=== PATIENT | female | born 1945 | race Caucasian/White ===

== ENCOUNTER 2017-05-15 08:43 | Observation (INO) | payer MEDICARE ==
[2017-05-15] VITALS (9 sets, daily range): BP systolic 111–159; BP diastolic 59–87; PULSE 54–81; RESP 15–18; TEMP 96.4–97.7; O2SAT 95–99
[~2017-05-15] VITALS: Ht 160 cm; Wt 53.9 kg
[2017-05-15] MEDS ORDERED: NEBI20 PO (08:57)
[2017-05-15] MEDS ORDERED: LOSA100T PO (08:57)
[2017-05-15] MEDS ORDERED: PLAV75TA29 PO (08:57)
[2017-05-15] MEDS ORDERED: NIFE90TA2 (08:57)
[2017-05-15] MEDS ORDERED: POTA8CAP PO (08:57)
--- NOTE | 2017-05-15 08:59 | PD ---
HPI Chief Complaint: chest pain Time Seen by Provider: 08:53 Travel History International Travel<30 days: Yes Contact w/Intl Traveler<30days: Yes Traveled to known affect area: Yes History of Present Illness HPI This 71-year-old female is complaining of chest pain. She says that when she was driving this morning around 10-15 minutes ago she had an onset of substernal pain. The pain radiated to her back and has been persistent. He was little bit sweaty at that time. He did not vomit. She was not nauseated. She has had occasional pain like this in the past. She said she had similar pain which led to a cholecystectomy. She does have a history of coronary artery disease. She had bypass surgery 16 years ago. She says a single vessel was bypassed in the front of the heart. Since then she has had occasional pain. She had a 30 7 months after the bypass which apparently was okay she is on Plavix. She does not take aspirin. She says she generally has a good exercise tolerance and is fairly active. She is on medication for hypertension. Besides her cholecystectomy she has had hysterectomy, tonsillectomy. PFSH Past Medical History Arthritis: Yes Autoimmune Disease: No Anxiety: No Depression: No Heart Rhythm Problems: No High Cholesterol: No Congestive Heart Failure: No Cerebrovascular Accident: Yes GERD: Yes Hepatitis: No Hiatal Hernia: No Hypertension: No Psychiatric: Yes Myocardial Infarction: No Seizures: No Thyroid Disease: No Ulcer: No Past Surgical History Genitourinary Surgery: No Social History Alcohol Use: No Tobacco Use: Yes Substance Use: No Allergies-Medications (Allergen,Severity, Reaction): Coded Allergies: cephalexin (Verified Allergy, Severe, 05/15/17) codeine (Verified Allergy, Severe, 05/15/17) iodine (Verified Allergy, Severe, 05/15/17) iohexol (Verified Allergy, Severe, DELAYED REACTION, NEXT MORNING, 05/15/17 ) metoclopramide (Verified Allergy, Severe, 05/15/17) potassium iodide (Verified Allergy, Severe, 05/15/17) povidone-iodine (Verified Allergy, Severe, 05/15/17) sodium iodide (Verified Allergy, Severe, 05/15/17) sodium iodide (Verified Allergy, Severe, 05/15/17) Reported Meds & Prescriptions Reported Meds & Active Scripts Active Reported Potassium Chloride ER (Potassium Chloride) 8 Meq Cap 8 Meq PO DAILY Bystolic (Nebivolol) 20 Mg Tab 30 Mg PO DAILY Losartan (Losartan Potassium) 100 Mg Tab 100 Mg PO DAILY Nifedipine ER (Nifedipine) 90 Mg Tab 30 Plavix (Clopidogrel Bisulfate) 75 Mg Tab 75 Mg PO DAILY Review of Systems General / Constitutional: No: Fever, Chills Eyes: No: Diploplia, Blurred Vision HENT: No: Headaches Cardiovascular: Positive: Chest Pain or Discomfort, No: Palpitations, Irregular Rhythm Respiratory: No: Cough, Shortness of Breath Gastrointestinal: No: Nausea, Vomiting Genitourinary: No: Urgency, Frequency Musculoskeletal: No: Myalgias, Arthralgias Skin: No Rash Neurologic: No: Weakness Psychiatric: No: Anxiety Endocrine: No: Heat Intolerance Physical Exam Narrative GENERAL: Well-developed female SKIN: Focused skin assessment warm/dry. HEAD: Atraumatic. Normocephalic. EYES: Pupils equal and round. No scleral icterus. No injection or drainage. ENT: No nasal bleeding or discharge. Mucous membranes pink and moist. NECK: Trachea midline. No JVD. CARDIOVASCULAR: Regular rate and rhythm. No murmur appreciated. RESPIRATORY: No accessory muscle use. Clear to auscultation. Breath sounds equal bilaterally. No chest wall tenderness GASTROINTESTINAL: Abdomen soft, non-tender, nondistended. Hepatic and splenic margins not palpable. MUSCULOSKELETAL: No obvious deformities. No clubbing. No cyanosis. No edema. NEUROLOGICAL: Awake and alert. No obvious cranial nerve deficits. Motor grossly within normal limits. Normal speech. PSYCHIATRIC: Appropriate mood and affect; insight and judgment normal. Data Data Last Documented VS Vital Signs Date Time Temp Pulse Resp B/P (MAP) Pulse Ox O2 Delivery O2 Flow Rate FiO2 05/15/17 09:15 16 05/15/17 09:13 55 112/67 (82) 99 Room Air 05/15/17 08:43 97.7 Orders Orders Electrocardiogram (05/15/17 08:54) Complete Blood Count With Diff (05/15/17 08:54) Comprehensive Metabolic Panel (05/15/17 08:54) Magnesium (Mg) (05/15/17 08:54) Prothrombin Time / Inr (Pt) (05/15/17 08:54) Act Partial Throm Time (Ptt) (05/15/17 08:54) Troponin I (05/15/17 08:54) Lipase (05/15/17 08:54) Chest, Single Ap (05/15/17 08:54) Ecg Monitoring (05/15/17 08:54) Bilateral Bp Monitoring (05/15/17 08:54) Iv Access Insert/Monitor (05/15/17 08:54) Oximetry (05/15/17 08:54) Oxygen Administration (05/15/17 08:54) Nitroglycerin 2% Oint (Nitroglycerin 2% (05/15/17 09:00) Sodium Chloride 0.9% Flush (Ns Flush) (05/15/17 09:00) Morphine Inj (Morphine Inj) (05/15/17 09:00) Ondansetron Inj (Zofran Inj) (05/15/17 09:15) Electrocardiogram (05/15/17 09:20) Morphine Inj (Morphine Inj) (05/15/17 09:30) Morphine Inj (Morphine Inj) (05/15/17 09:30) Aspirin (Aspirin) (05/15/17 09:30) Labs Laboratory Tests Test 05/15/17 09:03 White Blood Count 5.6 TH/MM3 Red Blood Count 4.31 MIL/MM3 Hemoglobin 13.5 GM/DL Hematocrit 40.3 % Mean Corpuscular Volume 93.4 FL Mean Corpuscular Hemoglobin 31.4 PG Mean Corpuscular Hemoglobin Concent 33.6 % Red Cell Distribution Width 12.5 % Platelet Count 287 TH/MM3 Mean Platelet Volume 7.8 FL Neutrophils (%) (Auto) 46.4 % Lymphocytes (%) (Auto) 44.5 % Monocytes (%) (Auto) 7.7 % Eosinophils (%) (Auto) 1.1 % Basophils (%) (Auto) 0.3 % Neutrophils # (Auto) 2.6 TH/MM3 Lymphocytes # (Auto) 2.5 TH/MM3 Monocytes # (Auto) 0.4 TH/MM3 Eosinophils # (Auto) 0.1 TH/MM3 Basophils # (Auto) 0.0 TH/MM3 CBC Comment DIFF FINAL Differential Comment Prothrombin Time 11.1 SEC Prothromb Time International Ratio 1.0 RATIO Activated Partial Thromboplast Time 23.8 SEC Blood Urea Nitrogen 18 MG/DL Creatinine 0.68 MG/DL Random Glucose 102 MG/DL Total Protein 7.3 GM/DL Albumin 3.9 GM/DL Calcium Level 8.6 MG/DL Magnesium Level 2.4 MG/DL Alkaline Phosphatase 130 U/L Aspartate Amino Transf (AST/SGOT) 73 U/L Alanine Aminotransferase (ALT/SGPT) 51 U/L Total Bilirubin 0.6 MG/DL Sodium Level 135 MEQ/L Potassium Level 3.7 MEQ/L Chloride Level 99 MEQ/L Carbon Dioxide Level 29.2 MEQ/L Anion Gap 7 MEQ/L Estimat Glomerular Filtration Rate 85 ML/MIN Troponin I LESS THAN 0.02 NG/ML Lipase 145 U/L MDM Medical Decision Making Medical Screen Exam Complete: Yes Emergency Medical Condition: Yes Medical Record Reviewed: Yes Differential Diagnosis Differential includes coronary artery disease, chest wall pain, Narrative Course EKG shows sinus rhythm, patient was having chest pain on arrival. She was given nitroglycerin paste and intravenous morphine. Her pain subsided initially but then it did recur. At this point a repeat EKG has been done and again shows sinus rhythm. There are minimal ST abnormalities Patient has been given additional morphine and reports some improvement of pain. Chest x-ray is negative. Troponin has come back negative. On rechecking the patient at 10:15 she reports that her pain is resolved. I have discussed the case with Dr. Dalton the patient's master brewer. He recommends the patient be put through the chest pain protocol here, if workup is negative he will follow her up as an outpatient Diagnosis Primary Impression: Chest pain Mahin Norman MD May 15, 2017 08:59
[2017-05-15] MEDS ORDERED: NITROGLYCERIN 2% OINT 1 GM PACKET TOP ONE (09:00)
[2017-05-15] MEDS ORDERED: MORPHINE SULFATE 2 MG/ML INJ IV ONE (09:00)
[2017-05-15] MEDS ORDERED: SODIUM CHLORIDE 0.9% FLUSH 10 ML FLUSH IVF PRN (09:00)
[2017-05-15] MEDS ORDERED: MORPHINE SULFATE 4 MG/ML INJ IV PUSH ONE ×2 (09:00→09:30)
[2017-05-15] MEDS ORDERED: ONDANSETRON HCL 4 MG/2 ML VIAL IV PUSH ONE (09:15)
[2017-05-15 09:25] LABS: AUTOMATED NEUTROPHIL # 2.6 TH/MM3 (1.8-7.7); BASOPHIL % 0.3 % (0.0-2.0); EOSINOPHIL # 0.1 TH/MM3 (0-0.4); EOSINOPHIL % 1.1 % (0.0-4.0); HEMATOCRIT 40.3 % (35.0-46.0); HEMO FLAGS DIFF FINAL; LYMPH % 44.5 % (9.0-44.0); LYMPHOCYTE # 2.5 TH/MM3 (1.0-4.8); MEAN CELL VOLUME 93.4 FL (80.0-100.0); MEAN CORPUSCULAR HEMOGLOBIN 31.4 PG (27.0-34.0); MEAN CORPUSCULAR HGB CONC 33.6 % (32.0-36.0); MONO % 7.7 % (0.0-8.0); NEUT % 46.4 % (16.0-70.0); PLATELET COUNT 287 TH/MM3 (150-450); RED BLOOD COUNT 4.31 MIL/MM3 (4.00-5.30); RED CELL DISTRIBUTION WIDTH 12.5 % (11.6-17.2); WHITE BLOOD COUNT 5.6 TH/MM3 (4.0-11.0)
[2017-05-15] MEDS ORDERED: MORPHINE SULFATE 2 MG/ML INJ IV PUSH ONE (09:30)
[2017-05-15] MEDS ORDERED: ASPIRIN 325 MG TAB PO ONE (09:30)
[2017-05-15 09:36] LABS: APTT (PATIENT) 23.8 SEC (24.3-30.1); PROTHROMBIN TIME - PATIENT 11.1 SEC (9.8-11.6)
--- NOTE | 2017-05-15 09:49 | RADRPT ---
EXAM DATE/TIME: 05/15/2017 09:32 [facility] COMPARISON: No previous studies available for comparison. INDICATIONS : Chest pain, nausea. MEDICAL HISTORY : Hypertension. Cardiovascular disease. SURGICAL HISTORY : CABG. ENCOUNTER: Initial ACUITY: 1 day PAIN SCORE: 6/10 LOCATION: Bilateral chest FINDINGS: A single view of the chest demonstrates the lungs to be symmetrically aerated without evidence of mas s, infiltrate or effusion. Median sternotomy wires in place. The cardiomediastinal contours are unre markable. Osseous structures are intact. CONCLUSION: 1. Postsurgical features. 2. No acute cardiopulmonary disease. Jermaine Cai MD on May 15, 2017 at 9:46 Board Certified Radiologist. This report was verified electronically.
[2017-05-15 10:01] LABS: CHLORIDE 99 MEQ/L (98-107); POTASSIUM 3.7 MEQ/L (3.5-5.1); SODIUM (NA) 135 MEQ/L (136-145)
[2017-05-15 10:05] LABS: ANION GAP 7 MEQ/L (5-15); BICARBONATE 29.2 MEQ/L (21.0-32.0); BLOOD UREA NITROGEN 18 MG/DL (7-18)
[2017-05-15 10:06] LABS: MAGNESIUM 2.4 MG/DL (1.5-2.5)
[2017-05-15 10:08] LABS: ALT (GPT) 51 U/L (10-53); AST (GOT) 73 U/L (15-37); GLOMERULAR FILTRATION RATE 85 ML/MIN (>89)
[2017-05-15 10:09] LABS: TOTAL BILIRUBIN ADULT 0.6 MG/DL (0.2-1.0)
[2017-05-15 10:10] LABS: ALKALINE PHOSPHATASE 130 U/L (45-117)
[2017-05-15] MEDS ORDERED: SODIUM CHLORIDE 0.9% FLUSH 10 ML FLUSH IV FLUSH PRN (11:00)
[2017-05-15] MEDS ORDERED: ONDANSETRON HCL 4 MG/2 ML VIAL IV PUSH PRN (11:00)
[2017-05-15] MEDS ORDERED: ACETAMINOPHEN/HYDROcodone 325 MG/7.5 MG TAB PO PRN (11:00)
[2017-05-15] MEDS ORDERED: NITROGLYCERIN 0.4 MG SL 25 TABS/BTL SL PRN (11:00)
[2017-05-15] MEDS ORDERED: MORPHINE SULFATE 2 MG/ML INJ IV PUSH PRN (11:15)
[2017-05-15] MEDS ORDERED: PROMETHAZINE INJ 25 MG/ML VIAL IM ONE (13:00)
[2017-05-15 13:31] LABS: CREATINE KINASE 87 U/L (26-192)
[2017-05-15 15:05] LABS: CREATINE KINASE 104 U/L (26-192)
[2017-05-15 15:17] LABS: CKMB 1.7 NG/ML (0.5-3.6)
--- NOTE | 2017-05-15 15:25 | HHI.HP ---
HPI Service [facility] Primary Care Physician Neville Bazan MD Admission Diagnosis CHEST PAIN Diagnoses: (1) Chest pain Diagnosis: Principal Chief Complaint: Chest pain Travel History International Travel<30 Days: Yes Contact w/Intl Traveler <30 Da: Yes Traveled to Known Affected Are: Yes History of Present Illness Written by Michael Bhatti, acting as scribe for Dr. Caldwell on 05/15/17 at 15 :17. 71-year-old female with known history of hypertension, hyperlipidemia , coronary artery disease, TIA who presented to hospital because acute onset of chest pain. Patient states that she is in normal state of health until this morning when she was driving. At approximately 8 AM when she was driving she developed a epigastric lower sternum chest discomfort that radiated into her back. Patient states that is associated with diaphoresis, lightheadedness, dizziness. Patient continued to drive with the discomfort and it progressively got worse to a 10/10 on a pain scale. She pulled over into a parking lot in order to contemplate what she planned on doing. The patient's pain did not improve so she drove herself to the [facility] emergency department. She is given morphine in the emergency department with moderate relief. The pain did come back and after the placement of Nitropaste and another dose of morphine and the pain completely resolved. At the present time after the morphine she does have some mild nausea. During her episode she did not have any nausea, vomiting, radiation to neck, shoulder, arm, denies any shortness of breath or dyspnea. Patient had evaluation done emergency department and recommended chest pain center observation. Review of Systems Constitutional: COMPLAINS OF: Diaphoretic episodes Cardiovascular: COMPLAINS OF: Chest pain Gastrointestinal: COMPLAINS OF: Nausea Except as stated in HPI: all other systems reviewed are Neg Past Family Social History Past Medical History Hypertension Hyperlipidemia Coronary artery disease History TIA Past Surgical History Coronary bypass surgery one vessel Hysterectomy Cholecystectomy Tonsillectomy Left arm surgery Bilateral feet surgery Reported Medications Reported Meds & Active Scripts Active Reported Potassium Chloride ER (Potassium Chloride) 8 Meq Cap 8 Meq PO DAILY Bystolic (Nebivolol) 20 Mg Tab 30 Mg PO DAILY Losartan (Losartan Potassium) 100 Mg Tab 100 Mg PO DAILY Nifedipine ER (Nifedipine) 90 Mg Tab 30 Plavix (Clopidogrel Bisulfate) 75 Mg Tab 75 Mg PO DAILY Allergies: Coded Allergies: cephalexin (Verified Allergy, Severe, 05/15/17) codeine (Verified Allergy, Severe, 05/15/17) iodine (Verified Allergy, Severe, 05/15/17) iohexol (Verified Allergy, Severe, DELAYED REACTION, NEXT MORNING, 05/15/17 ) metoclopramide (Verified Allergy, Severe, 05/15/17) potassium iodide (Verified Allergy, Severe, 05/15/17) povidone-iodine (Verified Allergy, Severe, 05/15/17) sodium iodide (Verified Allergy, Severe, 05/15/17) sodium iodide (Verified Allergy, Severe, 05/15/17) Family History Reviewed and significant for father at age 47 from myocardial infarction, mother is alive in good health at age 94 Social History Patient quit smoking 30 years ago, prior to that she smoked one pack a 60 day since she was 16 years old. She drinks 1 glass of wine daily. Denies any illicit drugs Physical Exam Vital Signs Vital Signs Date Time Temp Pulse Resp B/P (MAP) Pulse Ox O2 Delivery O2 Flow Rate FiO2 05/15/17 12:00 96.9 58 16 136/79 (98) 98 05/15/17 11:53 05/15/17 10:59 97.4 55 17 145/75 (98) 98 Room Air 05/15/17 09:59 96.4 55 16 127/67 (87) 98 Room Air 05/15/17 09:15 16 05/15/17 09:13 55 15 112/67 (82) 99 Room Air 05/15/17 09:12 54 111/59 (76) 112/67 (82) 05/15/17 08:43 97.7 74 18 153/87 (109) Physical Exam GENERAL: Well-developed, well-nourished, in no acute distress. alert and orientated HEENT: Head is normocephalic without any lesions or masses noted. Facial features are symmetric. Eyes: Pupils equal round reactive to light. Extraocular muscles are intact. Conjunctivae were clear. Oropharyngeal: Pharynx without any erythema edema. Tongue is midline without deviation. Buccal mucosa is moist without any masses or lesions NECK: Supple without any masses. Trachea midline no deviation. No JVD, no bruits are appreciated CARDIAC: Regular rhythm, regular rate. S1/S2 are heard. No murmurs gallops or rubs. LUNGS: Clear to auscultation bilaterally. No wheeze, rhonchi or rales. No use of accessory muscles on inspiration or expiration. ABDOMEN: Soft, nontender. Nondistended. Bowel sounds heard in all 4 quadrants. No organomegaly or masses. Negative rebound, negative guarding EXTREMITIES: No edema, pulses are equal bilaterally. No cyanosis or clubbing NEUROLOGY: Mood and affect appear appropriate. Cranial nerves II through XII grossly intact. Muscle strength 5/5 in upper and lower extremities bilaterally. Deep tendon reflexes are 2+ in upper and lower extremities bilaterally. Laboratory Laboratory Tests Test 05/15/17 09:03 05/15/17 12:00 05/15/17 14:35 White Blood Count 5.6 Red Blood Count 4.31 Hemoglobin 13.5 Hematocrit 40.3 Mean Corpuscular Volume 93.4 Mean Corpuscular Hemoglobin 31.4 Mean Corpuscular Hemoglobin Concent 33.6 Red Cell Distribution Width 12.5 Platelet Count 287 Mean Platelet Volume 7.8 Neutrophils (%) (Auto) 46.4 Lymphocytes (%) (Auto) 44.5 Monocytes (%) (Auto) 7.7 Eosinophils (%) (Auto) 1.1 Basophils (%) (Auto) 0.3 Neutrophils # (Auto) 2.6 Lymphocytes # (Auto) 2.5 Monocytes # (Auto) 0.4 Eosinophils # (Auto) 0.1 Basophils # (Auto) 0.0 CBC Comment DIFF FINAL Differential Comment Prothrombin Time 11.1 Prothromb Time International Ratio 1.0 Activated Partial Thromboplast Time 23.8 Blood Urea Nitrogen 18 Creatinine 0.68 Random Glucose 102 Total Protein 7.3 Albumin 3.9 Calcium Level 8.6 Magnesium Level 2.4 Alkaline Phosphatase 130 Aspartate Amino Transf (AST/SGOT) 73 Alanine Aminotransferase (ALT/SGPT) 51 Total Bilirubin 0.6 Sodium Level 135 Potassium Level 3.7 Chloride Level 99 Carbon Dioxide Level 29.2 Anion Gap 7 Estimat Glomerular Filtration Rate 85 Troponin I LESS THAN 0.02 LESS THAN 0.02 LESS THAN 0.02 Lipase 145 Total Creatine Kinase 87 104 Creatine Kinase MB 1.7 Result Diagram: 05/15/1703 05/15/17 0903 Imaging Last Impressions Chest X-Ray 05/15/17 0854 Signed Impressions: Service Date/Time: Monday, May 15, 2017 09:32 - CONCLUSION: 1. Postsurgical features. 2. No acute cardiopulmonary disease. MD Ronit Rosenbaum VTE Risk Assessment Ronit VTE Risk Assessment: Mod/High Risk (score >= 2) Caprini Risk Assessment Model Point Value = 1 Point Value = 2 Point Value = 3 Point Value = 5 Age 41-60 Minor surgery BMI > 25 kg/m2 Swollen legs Varicose veins or History of unexplained or recurrent spontaneous Oral contraceptives or hormone replacement Sepsis (< 1 month) Serious lung disease, including pneumonia (< 1 month) Abnormal pulmonary function Acute myocardial infarction Congestive heart failure (< 1 month) History of inflammatory bowel disease Medical patient at bed rest Age 61-74 Arthroscopic surgery Major open surgery (> 45 min) Laparoscopic surgery (> 45 min) Malignancy Confined to bed (> 72 hours) Immobilizing plaster cast Central venous access Age >= 75 History of VTE Family history of VTE Factor V Leiden Prothrombin [id number] Lupus anticoagulant Anticardiolipin antibodies Elevated serum homocysteine Heparin-induced thrombocytopenia Other congenital or acquired thrombophilia Stroke (< 1 month) Elective arthroplasty Hip, pelvis, or leg fracture Acute spinal cord injury (< 1 month) Prophylaxis Regimen Total Risk Factor Score Risk Level Prophylaxis Regimen 0-1 Low Early ambulation 2 Moderate Order ONE of the following: *Sequential Compression Device (SCD) *Heparin 5000 units SQ BID 3-4 Higher Order ONE of the following medications: *Heparin 5000 units SQ TID *Enoxaparin/Lovenox 40 mg SQ daily (WT < 150 kg, CrCl > 30 mL/min) *Enoxaparin/Lovenox 30 mg SQ daily (WT < 150 kg, CrCl > 10-29 mL/min) *Enoxaparin/Lovenox 30 mg SQ BID (WT < 150 kg, CrCl > 30 mL/min) AND/OR *Sequential Compression Device (SCD) 5 or more Highest Order ONE of the following medications: *Heparin 5000 units SQ TID (Preferred with Epidurals) *Enoxaparin/Lovenox 40 mg SQ daily (WT < 150 kg, CrCl > 30 mL/min) *Enoxaparin/Lovenox 30 mg SQ daily (WT < 150 kg, CrCl > 10-29 mL/min) *Enoxaparin/Lovenox 30 mg SQ BID (WT < 150 kg, CrCl > 30 mL/min) AND *Sequential Compression Device (SCD) Assessment and Plan Assessment and Plan Chest pain Patient does have increased risk factors to include age, hypertension, hyperlipidemia, coronary artery disease, family history of heart disease Patient has been ruled out for acute coronary event with serial cardiac enzymes which are negative, Serial EKGs shows sinus bradycardia, incomplete right bundle branch block without any changes C stress test was performed and was negative for any ischemia, low risk. Continue aspirin, Plavix, beta lester, nitroglycerin as needed Hypertension, hyperlipidemia, coronary artery disease Continue home medications DVT prevention Sequential compression devices Discharge disposition Discharge home in stable condition Activity: Ad danny. Diet: Healthy heart diet Medications per medication reconciliation Follow-up with primary medical doctor in one week Problem Qualifiers (1) Chest pain: Qualified Codes: R07.9 - Chest pain, unspecified Michael Bhatti May 15, 2017 15:25
[2017-05-15] MEDS ORDERED: REGADENOSON INJ 0.4 MG/5 ML SYR IV ONE (16:56)
--- NOTE | 2017-05-15 17:56 | HHI.DCPOC ---
Discharge Care Plan Diagnosis: (1) Chest pain Goals to Promote Your Health * To prevent worsening of your condition and complications * To maintain your health at the optimal level Directions to Meet Your Goals Take your medications as prescribed Follow your dietary instruction Follow activity as directed Keep your appointments as scheduled Take your immunizations and boosters as scheduled If your symptoms worsen call your PCP, if no PCP go to Urgent Care Center or Emergency Room Smoking is Dangerous to Your Health. Avoid second hand smoke Call the 24-hour hour crisis hotline for domestic abuse at Michael Bhatti May 15, 2017 17:56
--- NOTE | 2017-05-15 18:10 | RADRPT ---
EXAM DATE/TIME: 05/15/2017 16:33 [facility] COMPARISON: No previous studies available for comparison. INDICATIONS : Substernal chest pain radiating to her back. Angina. Coronary artery disease. DOSE: 25.8 mCi Tc99m Myoview at stress. 8.1 mCi Tc99m Myoview at rest. 0.4 mg Lexiscan STRESS SYMPTOMS: Short of breath. EJECTION FRACTION: 69% MEDICAL HISTORY : Hypertension. SURGICAL HISTORY : CABG Cholecystectomy. Hysterectomy. ENCOUNTER: Initial ACUITY: 1 day PAIN SCALE: 2/10 LOCATION: Substernal chest TECHNIQUE: The patient underwent pharmacologic stress with infusion of prescribed dose. Continuous ECG tracing was monitored during stress. Gated SPECT imaging was performed after stress and conventional SPECT i maging was performed at rest. The examination was performed on a SPECT/CT scanner, both attenuation and non-corrected datasets were reviewed. FINDINGS: DISTRIBUTION: The maximum perfused segment at stress is in the anterior wall. PERFUSION STUDY: The pattern of perfusion at stress is within normal limits. GATED STUDY: There is intact wall motion and thickening without hypokinetic or dyskinetic segments. CONCLUSION: 1. Left ventricle perfusion is within normal limits. 2. Normal left ventricle wall motion and ejection fraction. RISK CATEGORY: Low (<1% Annual Mortality Rate) Romulo Chong MD on May 15, 2017 at 18:07 Board Certified Radiologist. This report was verified electronically.
--- NOTE | 2017-05-15 19:02 | EKG ---
Date Performed: 05/15/2017 Time Performed: 09:26:01 PTAGE: 71 years EKG: SINUS BRADYCARDIA POSSIBLE RIGHT VENTRICULAR CONDUCTION DELAY BORDERLINE ECG Compared to pr ior tracing no significant change PREVIOUS TRACING : 05/15/2017 08.47 DOCTOR: Chelsea Leiva Interpretating Date/Time 05/15/2017 19:00:56
--- NOTE | 2017-05-15 19:02 | EKG ---
Date Performed: 05/15/2017 Time Performed: 08:47:49 PTAGE: 71 years EKG: Sinus rhythm WITH SINUS ARRHYTHMIA POSSIBLE RIGHT VENTRICULAR CONDUCTION DELAY NONSPECIFIC ST & T-WAVE ABNORMALIT Y BORDERLINE ECG Compared to prior tracing no significant change PREVIOUS TRACING : 05/14/2003 20.36 DOCTOR: Chelsea Leiva Interpretating Date/Time 05/15/2017 19:00:42
--- NOTE | 2017-05-15 19:03 | EKG ---
Date Performed: 05/15/2017 Time Performed: 12:05:15 PTAGE: 71 years EKG: SINUS BRADYCARDIA INCOMPLETE RIGHT BUNDLE BRANCH BLOCK BORDERLINE ECG Compared to prior tra cing no significant change PREVIOUS TRACING : 05/15/2017 09.26 DOCTOR: Chelsea Leiva Interpretating Date/Time 05/15/2017 19:09:22
[2017-05-15] MEDS ORDERED: SODIUM CHLORIDE 0.9% FLUSH 10 ML FLUSH IV FLUSH SCH (21:00)
[2017-05-16] MEDS ORDERED: CLOPIDOGREL 75 MG TAB PO SCH (09:00)
[2017-05-16] MEDS ORDERED: LOSARTAN 50 MG TAB PO SCH (09:00)
[2017-05-16] MEDS ORDERED: NEBIVOLOL 10 MG TAB PO SCH (09:00)
[2017-05-16] MEDS ORDERED: POTASSIUM CHLORIDE 8 MEQ CONTROLLED RELEASE TAB PO SCH (09:00)
[2017-05-16] MEDS ORDERED: ASPIRIN 325 MG TAB PO SCH (09:00)
--- NOTE | 2017-05-16 10:00 | EKG ---
Date Performed: 05/15/2017 Time Performed: 14:40:16 PTAGE: 71 years EKG: SINUS BRADYCARDIA POSSIBLE RIGHT VENTRICULAR CONDUCTION DELAY BORDERLINE ECG PREVIOUS TRACING : 05/15/2017 12.05 DOCTOR: Lucio Weston Interpretating Date/Time 05/16/2017 09:58:28
--- NOTE | 2017-05-16 12:46 | TR ---
Date Performed: 05/15/2017 Time Performed: 17:08:03 DOCTOR: Neville Valdez DRUG LIST: CLINICAL HISTORY: REASON FOR TEST: REASON FOR ENDING: OBSERVATION: CONCLUSION: Lexiscan stress test was performed under standard four minute protocol. Radionuclid e was injected one minute prior to ending the test. No electrocardiographic abormalities were present to suggest ischemia. Nuclear imaging and interpretation are pending. COMMENTS:
== END 2017-05-15 18:46 | disposition home or self-care (01) ==
LOC: PHED 08:43 → PHEDA 10:47 → PH3B 11:51
PROVIDERS: ADMIT Internal Medicine; ATTEND Internal Medicine
DX: R07.9 Chest pain, unspecified (principal); I25.10 Atherosclerotic heart disease of native coronary artery without angina pectoris; I10 Essential (primary) hypertension; E78.5 Hyperlipidemia, unspecified; K21.9 Gastro-esophageal reflux disease without esophagitis; Z86.73 Personal history of transient ischemic attack (TIA), and cerebral infarction without residual deficits; Z95.1 Presence of aortocoronary bypass graft; Z82.49 Family history of ischemic heart disease and other diseases of the circulatory system; Z79.02 Long term (current) use of antithrombotics/antiplatelets; Z79.899 Other long term (current) drug therapy
CPT/HCPCS: 71010; 78452; 80053; 82550; 82552; 83690; 83735; 84484; 85025; 85610; 85730; 93005; 93017; 96374; 96375; 96376; 99285; A9502; G0378; J2270; J2405; J2550; J2785